=== PATIENT | male | born 1970 | race Caucasian/White ===

== ENCOUNTER → 2019-08-19 | Outpatient (CLI) | payer OTHER ==
[2019-08-19 13:23] LABS: HEMATOCRIT 48.8 % (42.0-52.0); HEMOGLOBIN 15.8 g/dl (13.5-17.5); MEAN CORPUSCULAR HGB CONC 32.4 g/dl (32.0-36.5); MEAN CORPUSCULAR VOLUME 89.7 fl (80.0-96.0); PLATELET COUNT, AUTOMATED 245 10^3/uL (150-450); RED BLOOD COUNT 5.44 10^6/uL (4.30-6.10); WHITE BLOOD COUNT 7.4 10^3/uL (4.0-10.0)
[2019-08-19 13:28] LABS: ALBUMIN 3.8 GM/DL (3.2-5.2); ALT/SGPT 33 U/L (12-78); BILIRUBIN,TOTAL 0.4 MG/DL (0.2-1.0); BLOOD UREA NITROGEN 18 MG/DL (7-18); C REACTIVE PROTEIN QUANTITATIV < 0.30 MG/DL (0.00-0.30); CALCIUM LEVEL 8.6 MG/DL (8.5-10.1); CARBON DIOXIDE LEVEL 23 MEQ/L (21-32); CHLORIDE LEVEL 109 MEQ/L (98-107); CREATININE FOR GFR 1.13 MG/DL (0.70-1.30); GLOMERULAR FILTRATION RATE > 60.0 (>60); GLUCOSE, FASTING 103 MG/DL (70-100); MAGNESIUM LEVEL 2.1 MG/DL (1.8-2.4); POTASSIUM SERUM 4.4 MEQ/L (3.5-5.1); SODIUM LEVEL 139 MEQ/L (136-145); TOTAL PROTEIN 6.7 GM/DL (6.4-8.2)
[2019-08-19 13:37] LABS: TOTAL 25(OH) VITAMIN D 20.7 NG/ML (30.0-100.0)
[2019-08-19 14:00] LABS: ERYTHROCYTE SEDIMENTATION RATE 2 mm/hr (0-15)
== END ==
LOC: M PLALAB 08:41
PROVIDERS: ATTEND Nurse Practitioner Family
DX: K52.9 Noninfective gastroenteritis and colitis, unspecified (principal); K92.1 Melena; E55.9 Vitamin D deficiency, unspecified

== ENCOUNTER → 2021-01-28 | Outpatient (REF) | payer OTHER ==
[2021-01-28 13:34] LABS: BASO # 0.1 10^3/uL (0.0-0.2); BASO % 0.6 % (0.0-1.0); EOS # 0.2 10^3/uL (0.0-0.5); EOS % 2.1 % (0.0-3.0); HEMATOCRIT 45.6 % (42.0-52.0); HEMOGLOBIN 15.1 g/dl (13.5-17.5); LYMPH # 2.4 10^3/uL (1.5-5.0); MEAN CORPUSCULAR HEMOGLOBIN 28.8 pg (27.0-33.0); MEAN CORPUSCULAR HGB CONC 33.1 g/dl (32.0-36.5); MEAN CORPUSCULAR VOLUME 86.9 fl (80.0-96.0); MONO # 0.8 10^3/uL (0.0-0.8); MONO % 10.1 % (2.0-8.0); NEUTROPHILS # 4.8 10^3/uL (1.5-8.5); NEUTROPHILS % 57.7 % (36.0-66.0); PLATELET COUNT, AUTOMATED 258 10^3/uL (150-450); RED BLOOD COUNT 5.25 10^6/uL (4.30-6.10); WHITE BLOOD COUNT 8.2 10^3/uL (4.0-10.0)
[2021-01-28 14:04] LABS: ALT/SGPT 41 U/L (12-78); BILIRUBIN,TOTAL 0.4 MG/DL (0.2-1.0); BLOOD UREA NITROGEN 12 MG/DL (7-18); CALCIUM LEVEL 9.3 MG/DL (8.5-10.1); CARBON DIOXIDE LEVEL 27 MEQ/L (21-32); CHLORIDE LEVEL 105 MEQ/L (98-107); CHOLESTEROL LEVEL 215 MG/DL (<200); GLOMERULAR FILTRATION RATE > 60.0 (>56); GLUCOSE, FASTING 82 MG/DL (70-100); HDL CHOLESTEROL 43 MG/DL (>40); LDL CHOLESTEROL 131 MG/DL (<100); NON-HDL-C 172 MG/DL; POTASSIUM SERUM 4.6 MEQ/L (3.5-5.1); SODIUM LEVEL 138 MEQ/L (136-145); TRIGLYCERIDES LEVEL 204 MG/DL (<150)
== END ==
LOC: M SFHCPLAZ 11:32
PROVIDERS: ATTEND Physician Assistant Medical
DX: Z00.00 Encounter for general adult medical examination without abnormal findings (principal); I10 Essential (primary) hypertension; E78.1 Pure hyperglyceridemia; Z86.79 Personal history of other diseases of the circulatory system; Z12.5 Encounter for screening for malignant neoplasm of prostate

== ENCOUNTER 2021-03-31 18:34 | Observation (INO) | payer OTHER ==
[~2021-03-31] VITALS: Ht 180.3 cm; Wt 108.6 kg
[2021-03-31] MEDS ORDERED: ALBU8.5H (18:51)
[2021-03-31] MEDS ORDERED: MUPI2OI (18:51)
[2021-03-31] MEDS ORDERED: OMEP-221 (18:51)
[2021-03-31] MEDS ORDERED: CEPH500C (18:51)
[2021-03-31] MEDS: DOCUSATE SODIUM 100MG CAPSULE PO SCH (21:00)
[2021-03-31] MEDS ORDERED: VANCOMYCIN HCL 2,000 MG in D5W 500 ML IV ONE (23:50)
[2021-04-01 00:31] LABS: ALBUMIN 3.9 GM/DL (3.2-5.2); ALT/SGPT 35 U/L (12-78); BILIRUBIN,DIRECT < 0.1 MG/DL (0.0-0.2); BILIRUBIN,TOTAL 0.3 MG/DL (0.2-1.0); C REACTIVE PROTEIN QUANTITATIV 1.72 MG/DL (0.00-0.30); LIPASE 141 U/L (73-393); TOTAL PROTEIN 7.2 GM/DL (6.4-8.2)
[2021-04-01 00:34] LABS: BASO # 0.1 10^3/uL (0.0-0.2); BASO % 0.5 % (0.0-1.0); EOS # 0.3 10^3/uL (0.0-0.5); EOS % 3.2 % (0.0-3.0); HEMATOCRIT 47.3 % (42.0-52.0); HEMOGLOBIN 15.4 g/dl (13.5-17.5); LYMPH # 3.1 10^3/uL (1.5-5.0); LYMPH % 33.5 % (24.0-44.0); MEAN CORPUSCULAR HEMOGLOBIN 28.7 pg (27.0-33.0); MEAN CORPUSCULAR HGB CONC 32.6 g/dl (32.0-36.5); MEAN CORPUSCULAR VOLUME 88.2 fl (80.0-96.0); MONO # 1.4 10^3/uL (0.0-0.8); MONO % 15.3 % (2.0-8.0); NEUTROPHILS # 4.3 10^3/uL (1.5-8.5); NEUTROPHILS % 47.2 % (36.0-66.0); PLATELET COUNT, AUTOMATED 265 10^3/uL (150-450); RED BLOOD COUNT 5.36 10^6/uL (4.30-6.10); WHITE BLOOD COUNT 9.1 10^3/uL (4.0-10.0)
[2021-04-01] MEDS ORDERED: MAALOX 30 ML SUSP *UDC PO PRN (01:05)
[2021-04-01] MEDS ORDERED: VANCOMYCIN HCL 1,000 MG, VIAL MATE ADAPTER 1 EACH in NS 250 ML IV SCH (01:05)
[2021-04-01] MEDS ORDERED: ACETAMINOPHEN TAB 650MG DOSE (2X325MG) PO PRN (01:05)
[2021-04-01] MEDS ORDERED: MOM 30ML SUSPENSION UDC PO PRN (01:05)
--- NOTE | 2021-04-01 01:05 | HPEPDOC ---
[facility] Medical History & Physical Date of Admission Apr 01, 2021 Date of Service: Apr 01, 2021 History and Physical CHIEF COMPLAINT: Skin redness and pain HISTORY OF PRESENT ILLNESS: 50-year-old male with a past medical history of hypertension, GERD, asthma, ulcerative colitis, PSVT and atrial fibrillation status post ablation 20 years ago. Patient presents with a two-day history of left leg swelling and pain, not responding to oral Keflex. Patient reports stepping outside of his truck and scratching his leg on a piece of metal. He denies any fevers, chills, palpitations, chest pain, shortness of breath, nausea, vomiting or diarrhea. Patient was started on IV vancomycin for suspected MRSA infection. Patient be admitted to hospital service for the treatment of cellulitis. PAST MEDICAL HISTORY: HTN GERD with Hx esophagitis Ulcerative colitis, follows with Dr. Jorge MOMIN in [place], [place] Asthma PSVT/Atrial fibrillation, s/p ablation 20 years ago. PAST SURGICAL HISTORY: S/p EGD x 2, colonoscopy x 2, required dilatation [place] teeth extraction SOCIAL HISTORY: Former smoker Denies etoh use Denies illicit drug use ALLERGIES: Please see below. REVIEW OF SYSTEMS: 10 point ROS conducted, relevant findings are noted in HPI HOME MEDICATIONS: Please see below. PHYSICAL EXAMINATION: VITAL SIGNS: please see below General: NAD, comfortable HEENT: PERRLA, EOMI, sclerae clear Neck: supple, normal ROM, no JVD Respiratory: lungs CTAB, no wheeze, no rales, no crackles CVS: RRR, normal S1, S2, no murmurs Abdo: soft, no masses, no hepatosplenomegaly, BS+, no rebound tenderness Extremities: no edema, pulses 2+ MSK: no joint deformities, normal ROM Neuro: no focal neuro deficits, moving all 4 extremities, CN2-12 intact. Strength 5/5 in all 4 extremities. No nystagmus. Psych: calm, cooperative, AAO x 3 LABORATORY DATA: See below. MICROBIOLOGY: Please see below. ASSESSMENT: : 50-year-old male with a past medical history of hypertension, GERD, asthma, ulcerative colitis, PSVT and atrial fibrillation status post ablation 20 years ago. Patient presents with a two-day history of left leg swelling and pain, not responding to oral Keflex. Patient reports stepping outside of his truck and scratching his leg on a piece of metal. He denies any fevers, chills, palpitations, chest pain, shortness of breath, nausea, vomiting or diarrhea. Patient was started on IV vancomycin for suspected MRSA infection. Patient be admitted to hospital service for the treatment of cellulitis. PLAN: #Cellulitis - low grade temp - blood cultures sent, wound cultures sent - started on empiric vancomycin for suspect MRSA infection - monitor ESR, CRP - f/u venous duplex study to r/ dvt #Hx of Asthma - resume home inhalers #remote hx of Afib and PST - s/p ablation 20 years ago - take no meds, is not seeing cardiology #hx of GERD/esophagitis - c/w PPI #Hx of UC - per PCP notes, took sulfasalazine - reports not taking meds for some time - follows with GI Dr. Patel in [place], [place], has not seen for 1 year - advised to follow up. Dispo: pending clinical improvement. Vital Signs Vital Signs Date Time Temp Pulse Resp B/P (MAP) Pulse Ox O2 Delivery O2 Flow Rate FiO2 03/31/21 18:35 99.1 107 18 128/97 (107) 97 Room Air Laboratory Data Labs 24H Laboratory Tests 2 03/31/21 23:47: Immature Granulocyte % (Auto) 0.3, Neutrophils (%) (Auto) 47.2, Lymphocytes (%) (Auto) 33.5, Monocytes (%) (Auto) 15.3H, Eosinophils (%) (Auto) 3.2H, Basophils (%) (Auto) 0.5, Neutrophils # (Auto) 4.3, Lymphocytes # (Auto) 3.1, Monocytes # (Auto) 1.4H, Eosinophils # (Auto) 0.3, Basophils # (Auto) 0.1, Nucleated Red Blood Cells % (auto) 0.0, POC Glucose (Misc Panel) 96, POC Sodium (Misc Panel) 142, POC Potassium (Misc Panel) 4.0, POC Chloride (Misc Panel) 104, POC Total CO2 (Misc Panel) 25.0, POC Blood Urea Nitrogen (Misc Panel 18, POC Ionized Calcium (Misc Panel) 4.8, POC Creatinine (Misc Panel) 1.2, POC Hematocrit (Misc Panel) 46.0, Lactic Acid Level 1.1, Total Bilirubin 0.3, Direct Bilirubin < 0.1, Aspartate Amino Transf (AST/SGOT) 19, Alanine Aminotransferase (ALT/SGPT) 35, Alkaline Phosphatase 99, C-Reactive Protein, Quantitative 1.72H, Total Protein 7.2, Albumin 3.9, Albumin/Globulin Ratio 1.2, Lipase 141 CBC/BMP Laboratory Tests 03/31/21 23:47 Microbiology Microbiology 03/31/21 Gram Stain, Received Pending 03/31/21 Wound Culture, Received Pending 03/31/21 Blood Culture, Received Pending 03/31/21 Blood Culture, Received Pending Home Medications Miscellaneous Medications Albuterol Sulfate (Albuterol Sulfate Hfa) 8.5 Gm Hfa.aer.ad Cephalexin (Cephalexin) 500 Mg Capsule Mupirocin (Mupirocin) 2 % Oint...g. Omeprazole (Omeprazole) 40 Mg Capsule. Allergies Coded Allergies: No Known Allergies (Unverified , 03/31/21) A-FIB/CHADSVASC A-FIB History Current/History of A-Fib/PAF?: No Current PO Anticoag Therapy: No JUHI ALONSO MD Apr 01, 2021 01:05
[2021-04-01 01:07] LABS: ERYTHROCYTE SEDIMENTATION RATE 10 mm/hr (0-20)
[2021-04-01] MEDS ORDERED: MUPI2OI EXT (01:54)
[2021-04-01] MEDS ORDERED: BANO25TA PO (01:54)
[2021-04-01] MEDS ORDERED: PROAAER10 INH (01:54)
[2021-04-01] MEDS ORDERED: LORA-674 PO (01:54)
[2021-04-01] MEDS ORDERED: OMEP-221 PO (01:54)
[2021-04-01] MEDS ORDERED: CEPH500C PO (01:54)
[2021-04-01] MEDS ORDERED: HOME MED LIST COMPLETE! XX SCH (01:55)
[2021-04-01 02:14] LABS: RSV AMPLIFICATION NEGATIVE (NEGATIVE)
--- NOTE | 2021-04-01 02:16 | REPVR ---
PROCEDURE INFORMATION: Exam: US Left Non-Vascular Joint or Other Extremity Structure Exam date and time: 03/31/2021 11:57 PM Age: 50 years old Clinical indication: Other: Redness; Additional info: Spider bite TECHNIQUE: Imaging protocol: Left US joint or other nonvascular extremity structure or structures. Real-time ultrasound with image documentation. Limited study. Exam focused on the lower extremity in the region of clinical interest. COMPARISON: No relevant prior studies available. FINDINGS: Soft tissues: Skin induration and subcutaneous edema. No drainable fluid collection. IMPRESSION: Probable cellulitis. No evidence of an abscess. Electronically signed by: Christophe Perez On 04/01/2021 02:15:53 AM
[2021-04-01] MEDS ORDERED: VANCOMYCIN HCL 1,000 MG, VIAL MATE ADAPTER 1 EACH in NS 250 ML IV ONE ×2 (04:00→05:00)
--- NOTE | 2021-04-01 07:38 | ECGEPIP ---
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
[2021-04-01] MEDS: DOCUSATE SODIUM 100MG CAPSULE PO SCH (09:00)
[2021-04-01 10:00] VITALS: BP 142/99
[2021-04-01] MEDS ORDERED: DOXYCYCLINE HYCLATE 100MG TABLET PO SCH (10:00)
[2021-04-01] MEDS ORDERED: DOXY100T PO (13:16)
[2021-04-01] MEDS ORDERED: VANCOMYCIN HCL 750 MG, VIAL MATE ADAPTER 1 EACH in NS 250 ML IV SCH (16:00)
--- NOTE | 2021-04-01 16:19 | DS.PDOC ---
Discharge Summary General Date of Admission Mar 31, 2021 at 18:35 Date of Discharge 04/01/2021 Primary Care Physician: Humera Faust Attending Physician: MARTHA QUINTANA DO Discharge Summary PROCEDURES PERFORMED DURING STAY: None. ADMITTING DIAGNOSES: 1. Cellulitis. 2. History of asthma 3. Remote history of atrial fibrillation 4. GERD 5. Ulcerative colitis DISCHARGE DIAGNOSES: 1. Cellulitis. 2. History of asthma 3. Remote history of atrial fibrillation 4. GERD 5. Ulcerative colitis COMPLICATIONS/CHIEF COMPLAINT: Cellulitis Of Lft Leg. HISTORY OF PRESENT ILLNESS: Patient is a 50-year-old male who presented to the emergency department with a 2-day history of left leg swelling and pain. Patient initially reported to his primary care provider who started the patient on oral Keflex. Patient reports stepping outside of his truck and scratching his leg on a piece of metal. Patient denies any fevers, chills, palpitations or chest pain. Patient was started on IV vancomycin for suspected MRSA infection and was admitted to the hospital.. HOSPITAL COURSE: Patient was doing well throughout the day and did not show any systemic signs. In the morning on 04/01/2021, patient was transitioned to oral doxycycline. Patient did well with this and I saw the patient back on the floor in the afternoon and the patient was doing much better. Patient was feeling well and was deemed ready for discharge on 04/01/2021. Patient was discharged home. DISCHARGE MEDICATIONS: Please see below. ALLERGIES: Please see below. PHYSICAL EXAMINATION ON DISCHARGE: VITAL SIGNS: Please see below. General: Alert and oriented male patient who was sitting in the bed when I walked in the room. Patient not appear to be in any acute distress. HEENT: Normocephalic, atraumatic, moist mucous membranes. Neck: No lymphadenopathy or thyromegaly Cardiac: Regular rate and rhythm, no murmurs, normal S1, normal S2 Pulm: Clear to auscultation bilaterally. No wheezes, rhonchi, rales Abd: Nondistended, nontender to palpation, normal bowel sounds Ext: Patient had a well demarcated area of erythema without fluctuance on the left lateral upper calf. There were 2 markings around this and it appeared that the redness has receded from both of the tumor markings around this. There appeared to be an area in the center of the area that may have drained in the past. LABORATORY DATA: Please see below. IMAGING: Ultrasound of the left leg was reported to show probable cellulitis, no evidence of an abscess. PROGNOSIS: Good ACTIVITY: As tolerated. DIET: Regular DISCHARGE PLAN: Discharge home DISPOSITION: 01 Home, Self-Care. DISCHARGE INSTRUCTIONS: 1. Follow-up with your primary care provider within 3 to 5 days of discharge. 2. Take doxycycline 100 mg twice daily for 7 days. Make sure to take this medication with a full glass of water and avoid dairy products when taking his medication. Avoid long duration of sunlight as this medication can make you m ore photosensitive. 3. Return to the ED if your symptoms worsen ITEMS TO FOLLOWUP ON ON OUTPATIENT: 1. Follow-up resolution of cellulitis. DISCHARGE CONDITION: Stable. TIME SPENT ON DISCHARGE: 20 minutes. Vital Signs/I&Os Vital Signs Date Time Temp Pulse Resp B/P (MAP) Pulse Ox O2 Delivery O2 Flow Rate FiO2 04/01/21 10:00 98.6 100 18 142/99 (113) 97 Room Air I&O- Last 24 Hours up to 6 AM 04/01/21 06:00 Intake Total 270 ml Balance 270 ml Laboratory Data Labs 24H Laboratory Tests 2 03/31/21 23:47: Immature Granulocyte % (Auto) 0.3, Neutrophils (%) (Auto) 47.2, Lymphocytes (%) (Auto) 33.5, Monocytes (%) (Auto) 15.3H, Eosinophils (%) (Auto) 3.2H, Basophils (%) (Auto) 0.5, Neutrophils # (Auto) 4.3, Lymphocytes # (Auto) 3.1, Monocytes # (Auto) 1.4H, Eosinophils # (Auto) 0.3, Basophils # (Auto) 0.1, Nucleated Red Blood Cells % (auto) 0.0, Erythrocyte Sedimentation Rate 10, POC Glucose (Misc Panel) 96, POC Sodium (Misc Panel) 142, POC Potassium (Misc Panel) 4.0, POC Chloride (Misc Panel) 104, POC Total CO2 (Misc Panel) 25.0, POC Blood Urea Nitr ogen (Misc Panel 18, POC Ionized Calcium (Misc Panel) 4.8, POC Creatinine (Misc Panel) 1.2, POC Hematocrit (Misc Panel) 46.0, Lactic Acid Level 1.1, Total Bilirubin 0.3, Direct Bilirubin < 0.1, Aspartate Amino Transf (AST/SGOT) 19, Alanine Aminotransferase (ALT/SGPT) 35, Alkaline Phosphatase 99, C-Reactive Protein, Quantitative 1.72H, Total Protein 7.2, Albumin 3.9, Albumin/Globulin Ratio 1.2, Lipase 141 04/01/21 01:32: Coronavirus (COVID-19)(PCR) NEGATIVE, Influenza Type A (RT-PCR) NEGATIVE, Influenza Type B (RT-PCR) NEGATIVE, Respiratory Syncytial Virus (PCR) NEGATIVE CBC/BMP Laboratory Tests 03/31/21 23:47 Microbiology Microbiology 03/31/21 Gram Stain - Final, Resulted 03/31/21 Wound Culture, Resulted Pending 03/31/21 Blood Culture, Received Pending 03/31/21 Blood Culture, Received Pending Discharge Medications Scheduled Doxycycline Hyclate (Doxycycline Hyclate) 100 Mg Tablet, 100 MG PO BID Mupirocin (Mupirocin) 2 % Oint...g., 1 DOSE EXT TID, (Reported) APPLIES TO SPIDER BITE ON LEFT LEG Omeprazole (Omeprazole) 40 Mg Capsule.dr, 40 MG PO BID, (Reported) Scheduled PRN Albuterol Sulfate (Proair Hfa) 8.5 Gm Hfa.aer.ad, 2 PUFF INH Q4H PRN for SHORTNESS OF BREATH, (Reported) Diphenhydramine HCl (Banophen) 25 Mg Tablet, 25 MG PO DAILY PRN for ALLERGY SYMPTOMS, (Reported) Loratadine (Loratadine) 10 Mg Tablet, 10 MG PO DAILY PRN for ALLERGY SYMPTOMS, (Reported) Allergies Coded Allergies: No Known Allergies (Unverified , 03/31/21) MARTHA QUINTANA DO Apr 01, 2021 16:18
[2021-04-01] MEDS ORDERED: VANCOMYCIN HCL 500 MG in D5W MINI-BAG PLUS 100 ML IV SCH (17:00)
== END 2021-04-01 14:00 | disposition home or self-care (01) ==
LOC: M ED 18:34 → M ED INP 18:35 → ENRESERV 04-01 06:43 → M MS5PR 04-01 09:32
PROVIDERS: ADMIT Family Medicine; ATTEND Family Medicine
DX: L03.116 Cellulitis of left lower limb (principal); J45.909 Unspecified asthma, uncomplicated; K21.00 Gastro-esophageal reflux disease with esophagitis, without bleeding; K51.90 Ulcerative colitis, unspecified, without complications; Z86.79 Personal history of other diseases of the circulatory system; I10 Essential (primary) hypertension; Z87.891 Personal history of nicotine dependence; Z79.899 Other long term (current) drug therapy; Z79.2 Long term (current) use of antibiotics
CPT/HCPCS: 76882; 80047; 80076; 83605; 83690; 85025; 85652; 86140; 87040; 87070; 87077; 87205; 87631; 93005; 96365; 96376; 99284; J3370

== ENCOUNTER → 2025-05-14 | Outpatient (CLI) | payer BC ==
[~2025-05-14] MED LIST: ALBU8.5H; BANO25TA PO; CEPH500C; CEPH500C PO; DOXY100T PO; LORA-1041 PO; MUPI2OI; MUPI2OI EXT; OMEP40CA5; OMEP40CA5 PO; PROAAER10 INH
[2025-05-14 14:32] LABS: PLATELET COUNT, AUTOMATED 260 10^3/uL (150-450)
[2025-05-14 14:36] LABS: ERYTHROCYTE SEDIMENTATION RATE 8 mm/hr (0-20)
[2025-05-14 14:50] LABS: ALT/SGPT 25 U/L (7.0-40); AST/SGOT 16 U/L (<34); C REACTIVE PROTEIN QUANTITATIV < 0.50 MG/DL (<1.0); CALCIUM LEVEL 8.9 MG/DL (8.5-10.1); CARBON DIOXIDE LEVEL 26 MMOL/L (20-31); CHLORIDE LEVEL 105 MMOL/L (98-107); CREATININE FOR GFR 0.92 MG/DL (0.70-1.30); GLOMERULAR FILTRATION RATE > 90.0 (>56); POTASSIUM SERUM 4.3 MMOL/L (3.5-5.1); SODIUM LEVEL 139 MMOL/L (136-145)
== END ==
LOC: M LAB 13:30
PROVIDERS: ATTEND Physician Assistant
DX: K51.90 Ulcerative colitis, unspecified, without complications (principal)